=== PATIENT | male | born 1955 | race African-American/Black ===

== ENCOUNTER 2018-03-15 22:09 | Emergency (ER) | payer SELFPAY ==
[~2018-03-15] VITALS: Ht 177.8 cm; Wt 106.8 kg
[2018-03-15 22:38] LABS: GLUCOSE,POINT OF CARE 250 MG/DL (70-110)
[2018-03-15] MEDS ORDERED: METF500T6 PO (22:46)
[2018-03-16] MEDS ORDERED: PROPARACAINE/FLUORESCEIN SOD 0.5-0.25% 0.5 ML OPHTHALMIC SOLUTION OS ONE (02:00)
[2018-03-16] MEDS ORDERED: PERTUSS(ACELL),DIPH,TET VAC/PF 0.5 ML VIAL IM ONE (02:00)
[2018-03-16 02:54] VITALS: BP 138/81
== END 2018-03-16 03:01 | disposition home or self-care (01) ==
LOC: EMS 22:09
DX: S01.112A Laceration without foreign body of left eyelid and periocular area, initial encounter (principal); E11.9 Type 2 diabetes mellitus without complications; I10 Essential (primary) hypertension; W45.8XXA Other foreign body or object entering through skin, initial encounter; Y93.89 Activity, other specified; Y92.89 Other specified places as the place of occurrence of the external cause; Y99.8 Other external cause status
CPT/HCPCS: 82962; 90471; 90715; 99283; Z7610

== ENCOUNTER 2025-03-03 16:45 | Emergency (ER) | payer MEDICARE, OTHER ==
[~2025-03-03] VITALS: Ht 177.8 cm; Wt 100.0 kg
[~2025-03-03 16:45] MED LIST: METF-1211 PO
[2025-03-03 16:55] VITALS: TEMP 97.9
[2025-03-03 17:04] LABS: APPEARANCE,URINE CLEAR (CLEAR); BILIRUBIN,URINE NEGATIVE (NEGATIVE); COLOR,URINE DARK YELLOW (YELLOW); GLUCOSE, URINE (UA) NEGATIVE (NEGATIVE); KETONES,URINE NEGATIVE (NEGATIVE); LEUKOCYTE ESTERASE ,URINE LARGE (NEGATIVE); OCCULT BLOOD,URINE MODERATE (NEGATIVE); PROTEIN,URINE NEGATIVE (NEGATIVE); SPECIFIC GRAVITIY, URINE 1.007 (1.003-1.030); UROBILINOGEN,URINE <=1.0 mg/dL (<=1.0)
[2025-03-03 17:10] LABS: GLUCOMETER DEV NAME(LOC) ER.7; GLUCOSE,POINT OF CARE 126 MG/DL (70-110)
[2025-03-03 17:14] LABS: BACTERIA,URINE Many /HPF (None Seen); NITRATE,URINE POSITIVE (NEGATIVE); SQUAMOUS EPITHELIAL CELL,UR Rare /LPF (None Seen); WBC,URINE 26-50 /HPF (0-5)
[2025-03-03 17:40] LABS: BASOPHILS % (AUTO) 0.3 % (0.0-2.0); EOSINOPHILS % (AUTO) 0.1 % (1.0-6.0); HEMOGLOBIN 14.7 g/dL (13.5-17.5); LYMPHOCYTES # (AUTO) 0.7 K/uL (1.0-4.8); LYMPHOCYTES % (AUTO) 5.1 % (22.0-44.0); MEAN CORPUSCULAR HGB CONC 33.4 G/dL (31.0-37.0); MEAN CORPUSCULAR VOLUME 90 fL (80-100); MONOCYTES # (AUTO) 0.7 K/uL (0.1-1.0); MONOCYTES % (AUTO) 4.8 % (2.0-9.0); NEUTROPHILS # (AUTO) 12.6 K/uL (1.8-7.7); NEUTROPHILS % (AUTO) 89.7 % (40.0-70.0); PLATELET COUNT (AUTO) 361 K/uL (150-450); RED CELL DISTRIBUTION WIDTH 13.5 % (11.5-14.5)
[2025-03-03 17:47] LABS: CALCIUM, TOTAL 9.3 mg/dL (8.8-10.5); CREATININE 1.68 mg/dL (0.60-1.30); POTASSIUM 4.2 mmol/L (3.5-5.1)
[2025-03-03 17:56] LABS: PLATELET MORPHOLOGY COMMENT GIANT PLTS PRESENT; RBC MORPHOLOGY COMMENT NORMAL RBC MORPH
[2025-03-03] MEDS: KETOROLAC TROMETHAMINE 30 MG/ML VIAL IVP ONE (19:41)
[2025-03-03] MEDS: CefTRIAXone 1 GM/DEXTROSE 50 ML IV ONE (19:41)
[2025-03-03] MEDS: SODIUM CHLORIDE 0.9% 1,000 ML IV ONE (19:42)
[2025-03-03] MEDS ORDERED: CEPH-558 PO (20:38)
[2025-03-03 21:28] VITALS: BP 149/80; PULSE 74; RESP 16; O2SAT 99
== END 2025-03-03 21:35 | disposition home or self-care (01) ==
LOC: EMS 16:47
DX: N39.0 Urinary tract infection, site not specified (principal); I10 Essential (primary) hypertension; E11.9 Type 2 diabetes mellitus without complications; E78.5 Hyperlipidemia, unspecified; Z79.899 Other long term (current) drug therapy
CPT/HCPCS: 99284; 96365; 96366; 96375; 80048; 81001; 82962; 85025; 87086; 36415; J1885; J0696; J7030